=== PATIENT | male | born 1955 | race African-American/Black ===

== ENCOUNTER 2021-03-25 15:44 | Emergency (ER) | payer MEDICARE, MEDICAID ==
[~2021-03-25] VITALS: Ht 180.3 cm; Wt 100.0 kg
[2021-03-25] MEDS ORDERED: ALLO100T PO (15:54)
[2021-03-25] MEDS ORDERED: ATOR-2 PO (15:54)
[2021-03-25] MEDS ORDERED: COLC0.6C3 PO (15:54)
[2021-03-25] MEDS ORDERED: INSULIN (15:54)
[2021-03-25] MEDS ORDERED: PANT40TA51 PO (15:54)
[2021-03-25] MEDS ORDERED: METF-874 PO (15:54)
[2021-03-25] MEDS ORDERED: AMLODIPINE (15:54)
[2021-03-25] MEDS ORDERED: EMPA25TA PO (15:54)
[2021-03-25] MEDS ORDERED: METOPROLOL (15:54)
[2021-03-25] MEDS ORDERED: ASPI-1497 PO (15:54)
[2021-03-25] MEDS ORDERED: GABA-532 PO (15:54)
[2021-03-25] MEDS ORDERED: LISI20TA31 PO (15:54)
[2021-03-25] MEDS ORDERED: CHLO10TA9 PO (15:54)
[2021-03-25] MEDS ORDERED: ACETAMINOPHEN 325MG TABLET PO ONE (19:00)
[2021-03-25 19:06] VITALS: BP 129/66
== END 2021-03-25 19:14 | disposition home or self-care (01) ==
LOC: ER 15:44
DX: S20.212A Contusion of left front wall of thorax, initial encounter (principal); I25.2 Old myocardial infarction; I10 Essential (primary) hypertension; E78.00 Pure hypercholesterolemia, unspecified; E11.9 Type 2 diabetes mellitus without complications; K21.9 Gastro-esophageal reflux disease without esophagitis; Z79.899 Other long term (current) drug therapy; Z98.890 Other specified postprocedural states; W18.30XA Fall on same level, unspecified, initial encounter; Y93.89 Activity, other specified; Y92.89 Other specified places as the place of occurrence of the external cause; Y99.8 Other external cause status
CPT/HCPCS: 71101; 99283; A4565